=== PATIENT | female | born 1985 | race Caucasian/White ===

== ENCOUNTER 2018-01-04 16:15 | Inpatient (IN) ==
[2018-01-04 17:16] LABS: Basophils % 0.3 % (0.0-0.8); Eosinophils # 0.1 10*3/uL (0.0-0.87); Eosinophils % 0.8 % (0.00-10.9); Hematocrit 35.7 VOL% (35.7-47.0); Hemoglobin 12.1 GM/DL (12.0-16.0); Immature Granulocytes % 0.9 %; Lymphocytes # 3.1 10*3/uL (1.4-4.0); Lymphocytes % 27.8 % (21.3-54.2); Mean Corpuscular HGB Conc 33.9 GM/DL (32-36); Mean Corpuscular Hemoglobin 33 PG (27-34); Mean Corpuscular Volume 96.7 FL (87-102); Mean Platelet Volume 11.3 FL (9.6-12.0); Monocytes # 0.6 10*3/uL (0.11-0.8); Monocytes % 5.4 % (1.7-12.7); NRBC # 0.02 10*3/uL; Neutrophils # 7.1 10*3/uL (1.4-7.4); Neutrophils % 64.8 % (38.7-73.9); Platelet Count 187 T/CUMM (130-400); Red Blood Count 3.69 MC/CUMM (3.8-5.5); Red Cell Distribution Width 14.6 % (9.3-17.3)
[2018-01-04 17:30] LABS: INR 0.9; PT Patient Result 9.4 SECS; Partial Thromboplastin Time 25.5 SECS (0-40)
[2018-01-04 17:48] LABS: Alanine Aminotransferase 15 U/L (13-56); Albumin 2.8 G/DL (3.4-5.0); Alkaline Phosphatase 106 U/L (45-117); Aspartate Amino Transferase 17 U/L (0-37); Bilirubin,Total < 0.39 MG/DL (0.2-1.0); Blood Urea Nitrogen 8 MG/DL (7-18); Calcium 9.2 MG/DL (8.5-10.1); Glucose 72 MG/DL (74-106); Osmolality,Calculated 273.5 MOS/KG (273-304); Potassium 3.7 MMOL/L (3.5-5.1); Sodium 139 MMOL/L (136-145); Total Protein 6.9 G/DL (6.4-8.3); Uric Acid 5.1 MG/DL (2.6-6.0)
[2018-01-04 17:52] LABS: Apearance,Urine Slightly Hazy (Clear); Bacteria,Urine Few /HPF (Few); Bilirubin,Urine Negative (Negative); Blood, Urine Negative (Negative); Glucose,Urine (UA) Negative (Negative); Ketones,Urine 5 mg/dL (Negative); Mucus,Urine Occasional /LPF (Occasional); Nitrite,Urine Negative (Negative); Protein,Urine Negative; RBC,Urine 1 /HPF (0-4); Squamous Epithelial Cell,Urine Occasional /HPF (0-10); Urine Color Straw (Yellow); Urine Specific Gravity 1.005 (1.001-1.035); Urine Urobilinogen < 2.0 EU/DL (0.2-1.0); WBC,Urine 1 /HPF (0-6)
[2018-01-04] MEDS ORDERED: ONDANSETRON 4 MG/2 ML VIAL IV PRN (22:42)
[2018-01-04] MEDS ORDERED: BUTORPHANOL 2 MG/ML VIAL IV PRN (22:42)
[2018-01-04 22:52] LABS: Basophils % 0.2 % (0.0-0.8); Eosinophils # 0.1 10*3/uL (0.0-0.87); Eosinophils % 0.8 % (0.00-10.9); Hematocrit 35.9 VOL% (35.7-47.0); Hemoglobin 12.2 GM/DL (12.0-16.0); Immature Granulocytes % 0.7 %; Immature Granulocytes Absolute 0.09 #; Lymphocytes % 31.1 % (21.3-54.2); Mean Corpuscular Hemoglobin 33 PG (27-34); Mean Corpuscular Volume 97.6 FL (87-102); Mean Platelet Volume 11.2 FL (9.6-12.0); Monocytes # 0.6 10*3/uL (0.11-0.8); Monocytes % 4.5 % (1.7-12.7); Neutrophils # 8.1 10*3/uL (1.4-7.4); Neutrophils % 62.7 % (38.7-73.9); Platelet Count 183 T/CUMM (130-400); Red Blood Count 3.68 MC/CUMM (3.8-5.5); Red Cell Distribution Width 14.6 % (9.3-17.3)
[2018-01-04] MEDS ORDERED: OXYTOCIN/LR 20 UNIT/1,000 ML BAG IV SCH (23:00)
[2018-01-05] MEDS: LACTATED RINGERS 1,000 ML IV SCH ×4 (01:23→12:04)
[2018-01-05] MEDS ORDERED: ePHEDrine 50 MG/ML AMP IV PRN (06:51)
[2018-01-05] MEDS ORDERED: NALOXONE 0.4 MG/ML VIAL IV PRN (06:51)
[2018-01-05] MEDS ORDERED: CITRIC ACID/SODIUM CITRATE 30 ML UDCUP PO ONE (06:52)
[2018-01-05] MEDS ORDERED: FAMOTIDINE 20 MG/2 ML VIAL IV ONE (06:52)
[2018-01-05] MEDS ORDERED: fentaNYL 2 MCG/ROPIV 0.2% EPID 100 ML EPIDURAL SCH (07:00)
[2018-01-05] MEDS ORDERED: LACTATED RINGERS 1,000 ML IV ONE (07:43)
[2018-01-05] MEDS ORDERED: MAGNESIUM SULF RIDER 100 ML IV ONE (07:57)
[2018-01-05] MEDS ORDERED: MAGNESIUM SULF DRIP 40 GM/1,000 ML ML IV SCH (08:00)
[2018-01-05 13:50] LABS: Apearance,Urine CLEAR (Clear); Bilirubin,Urine Negative (Negative); Blood, Urine Negative (Negative); Glucose,Urine (UA) Negative (Negative); Ketones,Urine Negative (Negative); Mucus,Urine Occasional /LPF (Occasional); Nitrite,Urine Negative (Negative); Protein,Urine Negative; RBC,Urine 1 /HPF (0-4); Urine Color Straw (Yellow); Urine Specific Gravity 1.005 (1.001-1.035); Urine Urobilinogen < 2.0 EU/DL (0.2-1.0); WBC,Urine <1 /HPF (0-6)
[2018-01-05] MEDS ORDERED: MEASLES/MUMPS/RUBELLA VACCINE 0.5 ML VIAL SUBCUT ONE (16:04)
[2018-01-05] MEDS ORDERED: DIPH/TET/ACEL PERT BOOSTER VACCINE 0.5 ML VIAL IM ONE (16:04)
[2018-01-05] MEDS ORDERED: LANOLIN 50% CREAM 0.3 OZ TUBE TOP PRN (16:04)
[2018-01-05] MEDS ORDERED: IBUPROFEN 800 MG TABLET PO PRN (16:04)
[2018-01-05] MEDS ORDERED: BISACODYL 10 MG SUPP RECTAL PRN (16:04)
[2018-01-05] MEDS ORDERED: BENZOCAINE 20%/MENTHOL 0.5% SPRAY 56 GM CAN TOP PRN (16:04)
[2018-01-05] MEDS ORDERED: oxyCODONE/ACETAMINOPHEN 5-325 MG TABLET PO PRN ×2 (16:04)
[2018-01-05] MEDS ORDERED: WITCH HAZEL PADS 100/JAR TOP PRN (16:04)
[2018-01-05] MEDS ORDERED: ACETAMINOPHEN 325 MG TABLET PO PRN (16:04)
[2018-01-05] MEDS ORDERED: ONDANSETRON 4 MG/2 ML VIAL IV PRN (16:04)
[2018-01-05] MEDS ORDERED: HYDROCORTISONE 2.5% RECTAL CREAM 30 GM TUBE TOP PRN (16:04)
[2018-01-05] MEDS ORDERED: RHO(D) IMMUNE GLOBULIN 300 MCG SYRINGE IM ONE (16:04)
[2018-01-05] MEDS ORDERED: OXYTOCIN/LR 20 UNIT/1,000 ML BAG IV ONE (16:04)
[2018-01-05] MEDS ORDERED: IBUPROFEN 800 MG TABLET ONE (18:47)
[2018-01-05] MEDS ORDERED: PROMETHAZINE 25 MG/1 ML VIAL IM PRN (21:04)
[2018-01-05] MEDS ORDERED: PROMETHAZINE 25 MG/1 ML VIAL ONE (21:13)
[2018-01-05] MEDS ORDERED: oxyCODONE/ACETAMINOPHEN 5-325 MG TABLET ONE (21:15)
[2018-01-06 07:38] LABS: Basophils % 0.3 % (0.0-0.8); Eosinophils # 0.1 10*3/uL (0.0-0.87); Eosinophils % 0.5 % (0.00-10.9); Hematocrit 30.9 VOL% (35.7-47.0); Hemoglobin 10.5 GM/DL (12.0-16.0); Immature Granulocytes % 0.8 %; Immature Granulocytes Absolute 0.09 #; Lymphocytes # 2.4 10*3/uL (1.4-4.0); Lymphocytes % 20.8 % (21.3-54.2); Mean Corpuscular Hemoglobin 33 PG (27-34); Mean Platelet Volume 10.7 FL (9.6-12.0); Monocytes # 0.7 10*3/uL (0.11-0.8); Neutrophils # 8.3 10*3/uL (1.4-7.4); Neutrophils % 71.6 % (38.7-73.9); Platelet Count 145 T/CUMM (130-400); Red Blood Count 3.22 MC/CUMM (3.8-5.5); Red Cell Distribution Width 14.8 % (9.3-17.3); White Blood Count 11.6 T/CUMM (4-12)
[2018-01-06] MEDS: LABETALOL 100 MG TABLET PO SCH ×2 (09:11→22:28)
[2018-01-06] MEDS: DOCUSATE SODIUM 100 MG CAPSULE PO SCH ×2 (10:38→22:27)
[2018-01-07 07:17] VITALS: BP 128/81
[2018-01-07] MEDS: DOCUSATE SODIUM 100 MG CAPSULE PO SCH (09:54)
[2018-01-07] MEDS: LABETALOL 100 MG TABLET PO SCH (09:55)
== END 2018-01-07 13:40 | disposition home or self-care (01) | DRG 775 ==
LOC: N.LD 16:15 → N.LDOUT 16:15 → N.LD 16:19 → N.OB 01-06 13:39
PROVIDERS: ADMIT Obstetrics & Gynecology; ATTEND Obstetrics & Gynecology

== ENCOUNTER 2019-06-21 22:43 | Inpatient (IN) ==
[2019-06-22] MEDS ORDERED: MORPHINE 4 MG/1 ML VIAL IV ONE (01:20)
[2019-06-22] MEDS: ONDANSETRON 4 MG/2 ML VIAL IV PRN ×2 (01:43→11:55)
[2019-06-22] MEDS: LEVOFLOXACIN INJ 500 MG in PREMIX 1 EACH IV SCH (01:44)
[2019-06-22] MEDS ORDERED: KETOROLAC 30 MG/1 ML VIAL IV ONE (02:13)
[2019-06-22 02:27] LABS: Basophils # 0.1 10*3/uL (0.0-0.2); Basophils % 0.5 % (0.0-0.8); Eosinophils # 0.1 10*3/uL (0.0-0.87); Hematocrit 36.5 VOL% (35.7-47.0); Hemoglobin 12.3 GM/DL (12.0-16.0); Immature Granulocytes % 0.3 %; Immature Granulocytes Absolute 0.03 #; Lymphocytes # 4.2 10*3/uL (1.4-4.0); Lymphocytes % 36.9 % (21.3-54.2); Mean Corpuscular HGB Conc 33.7 GM/DL (32-36); Mean Corpuscular Volume 91.9 FL (87-102); Mean Platelet Volume 10.3 FL (9.6-12.0); Monocytes % 5.6 % (1.7-12.7); Neutrophils % 55.7 % (38.7-73.9); Platelet Count 292 T/CUMM (130-400); Red Blood Count 3.97 MC/CUMM (3.8-5.5); Red Cell Distribution Width 12.7 % (9.3-17.3); White Blood Count 11.5 T/CUMM (4-12)
[2019-06-22 02:50] LABS: Troponin I < 0.015 NG/ML (0.00-0.045)
[2019-06-22 03:02] LABS: Albumin 3.5 G/DL (3.4-5.0); Bilirubin,Total 0.7 MG/DL (0.2-1.0); Calcium 8.8 MG/DL (8.5-10.1); Osmolality,Calculated 279.4 MOS/KG (273-304); Total Protein 7.5 G/DL (6.4-8.3)
[2019-06-22] MEDS: POTASSIUM CHLORIDE 20 MEQ TABLET PO PRN ×4 (06:06→11:59)
[2019-06-22 07:25] LABS: Troponin I < 0.015 NG/ML (0.00-0.045)
[2019-06-22] MEDS: ENOXAPARIN 80 MG/0.8 ML SYRINGE SUBCUT SCH ×2 (07:58→20:51)
[2019-06-22] MEDS: PANTOPRAZOLE 40 MG TABLET PO SCH (08:00)
[2019-06-22 14:08] LABS: Troponin I < 0.015 NG/ML (0.00-0.045)
[2019-06-23] MEDS: LEVOFLOXACIN INJ 500 MG in PREMIX 1 EACH IV SCH (01:35)
[2019-06-23 05:46] LABS: Basophils # 0.1 10*3/uL (0.0-0.2); Basophils % 0.7 % (0.0-0.8); Eosinophils # 0.2 10*3/uL (0.0-0.87); Eosinophils % 2.2 % (0.00-10.9); Hematocrit 37.7 VOL% (35.7-47.0); Immature Granulocytes % 0.3 %; Immature Granulocytes Absolute 0.02 #; Lymphocytes # 3.6 10*3/uL (1.4-4.0); Lymphocytes % 52.7 % (21.3-54.2); Mean Corpuscular HGB Conc 31.8 GM/DL (32-36); Mean Corpuscular Volume 96.4 FL (87-102); Mean Platelet Volume 10.2 FL (9.6-12.0); Monocytes % 5.2 % (1.7-12.7); Neutrophils % 38.9 % (38.7-73.9); Platelet Count 288 T/CUMM (130-400); Red Blood Count 3.91 MC/CUMM (3.8-5.5); Red Cell Distribution Width 12.6 % (9.3-17.3); White Blood Count 6.9 T/CUMM (4-12)
[2019-06-23 06:12] LABS: Calcium 9.2 MG/DL (8.5-10.1); Osmolality,Calculated 277.4 MOS/KG (273-304)
[2019-06-23] MEDS: PANTOPRAZOLE 40 MG TABLET PO SCH (09:05)
[2019-06-23] MEDS: ENOXAPARIN 80 MG/0.8 ML SYRINGE SUBCUT SCH (09:05)
[2019-06-23 12:15] VITALS: BP 165/60
== END 2019-06-23 14:34 | disposition home or self-care (01) | DRG 134 ==
LOC: N.TELEN → SUATTDRO 23:55
PROVIDERS: ADMIT Internal Medicine; ATTEND Internal Medicine